=== PATIENT | male | born 1960 | race Caucasian/White ===

== ENCOUNTER 2019-05-25 05:07 | Day surgery (SDC) | payer BC ==
[~2019-05-25 05:07] MED LIST: METOCLOPRAMIDE 10 MG TABLET PO ONE
[2019-05-25] MEDS ORDERED: LIDOCAINE 2% MDV (20MG/ML) 20ML VIAL IV ONE (05:08)
[2019-05-25] MEDS ORDERED: PROPOFOL 10 MG/ML VIAL IV ONE (05:08)
[2019-05-25] MEDS ORDERED: ROPIVACAINE HCL (NAROPIN) /PF 5MG/ML 20ML VIAL IV ONE (05:08)
[2019-05-25] MEDS ORDERED: MIDAZOLAM HCL 2MG/2ML VIAL IV ONE (05:08)
[2019-05-25] MEDS ORDERED: DEXAMETHASONE 4 MG/ML 1ML VIAL IVP ONE (05:08)
[2019-05-25] MEDS ORDERED: EPHEDRINE SULFATE 50 MG/ML ML IV ONE (05:08)
[2019-05-25] MEDS ORDERED: GLYCOPYRROLATE 0.2 MG/ML ML IV ONE (05:08)
[2019-05-25] MEDS ORDERED: RINGERS SOLUTION,LACTATED 1,000 ML IV ONE (05:40)
[2019-05-25] MEDS ORDERED: METOCLOPRAMIDE 10 MG TABLET PO ONE (06:00)
[2019-05-25] MEDS ORDERED: MECLIZINE 25 MG TABLET PO ONE (06:00)
[2019-05-25] MEDS ORDERED: FAMOTIDINE 20MG TABLET PO ONE (06:00)
[2019-05-25] MEDS ORDERED: CEFAZOLIN 2 Gram 2 GM/50 ML BAG IVPB ONE (06:00)
[2019-05-25] MEDS: RINGERS SOLUTION,LACTATED 1,000 ML IV SCH (09:10)
[2019-05-25] MEDS ORDERED: ONDANSETRON HCL IV 4 MG/2 ML VIAL IVP PRN (09:30)
[2019-05-25] MEDS ORDERED: DIPHENHYDRAMINE HCL 25 MG CAPSULE PO PRN (09:30)
[2019-05-25] MEDS ORDERED: AL HYDROX/MAG HYDROX 30ML UD PO PRN (09:30)
[2019-05-25] MEDS ORDERED: HYDROCODONE/APAP 5/325MG TABLET PO PRN (09:30)
[2019-05-25] MEDS ORDERED: MAGNESIUM HYDROXIDE 30 ML UDC PO PRN (09:30)
[2019-05-25] MEDS ORDERED: ZOLPIDEM TARTRATE 5 MG TABLET PO PRN (09:30)
[2019-05-25] MEDS ORDERED: TRAMADOL HCL 50 MG TABLET PO PRN ×2 (09:30)
[2019-05-25] MEDS ORDERED: ACETAMINOPHEN 325 MG TAB PO PRN (09:30)
[2019-05-25] MEDS ORDERED: OXYCODONE HCL/APAP 5MG/325MG TABLET PO PRN ×2 (09:30)
[2019-05-25] MEDS ORDERED: NALOXONE 0.4 MG/1 ML VIAL IVP PRN (09:30)
[2019-05-25] MEDS ORDERED: METOCLOPRAMIDE HCL 10 MG/2 ML VIAL IVP PRN (09:30)
[2019-05-25] MEDS ORDERED: RINGERS SOLUTION,LACTATED 1,000 ML IV PRN (10:13)
[2019-05-25] MEDS ORDERED: TRANEXAMIC ACID 1,000 MG in 0.9 % SODIUM CHLORIDE 100ML 100 ML IVPB ONE (11:00)
[2019-05-25] MEDS: HYDROCODONE/APAP 5/325MG TABLET PO PRN ×2 (11:26→18:38)
[2019-05-25] MEDS: HYDROMORPHONE HCL 2 MG/ML VIAL IV PRN ×3 (13:18→19:57)
--- NOTE | 2019-05-25 14:19 | Rehab Evaluation ---
Patient Information - Patient Information Diagnosis: L knee OA Ordered Treatment: PT Evaluate and Treat Status: Initial Evaluation Surgery: Yes (L knee TKA) Date of Surgery: 05/25/19 Past Medical/Surgical Hx: PAST MEDICAL/SURGICAL HISTORY Surgery to Affected Area? No Recent Surgery? Past Surgical History C-Scope Hernia Sperm Surgery-35 years ago PMH - Respiratory Hx Respiratory Disorders Yes Hx Sleep Apnea Yes Hx of CPAP No Comment: ALLERGIES PMH - Cardiovascular Hx Cardiovascular Disorders Yes Hx Hypertension Yes Exercise Tolerance Good PMH - Neuro Hx Neurological Disorders No PMH - GI Hx Gastrointestinal Disorders Yes Comment: Colon Polyp PMH - Hx Genitourinary Disorders No PMH - Endocrine Hx Endocrine Disorders No PMH - Musculoskeletal Hx Musculoskeletal Disorders Yes Hx Arthritis Yes Hx Back Injury Yes PMH - Psych Hx Psychiatric Problems No PMH - Hematology/Oncology Hx Hematology/Oncology Yes Disorders Hx Blood Disorders Yes Hx Unexplained Bleeding Yes Premorbid Status: Detail (Prior to surgery the patient was independent with all mobility.) Social History: Detail (The patient lives spouse in a 2 story house with 3 steps at the enterance with no handrails. The bathroom is equipped with: a tub/shower combination , hand held shower, standard toilet. No grab bars are present in the bathroom. The patient has a walker with wheels and a quad cane.) Precautions: [place], Fall, Other (WBAT on the L LE.) - Time With Patient Total Time Spent With Patient (Min): 25 Treatment Procedures: Detail (Initial Evaluation, gait training) Subjective Information - Subjective Information Per Patient (The patient had complaints of level 5 pain using 0-10 pain scale.) Objective Data - Mental Status Patient Orientation: Oriented x3 - Visual Perception Appears within normal limits for therapeutic activities - ROM Not within normal limits (The patient's L knee AROM was limited s/p surgery. All other LE AROM was WNL.) - Strength/Tone Not within normal limits (The patient's L LE strength was not tested s/p however was functional ie: patient was able to lift L LE into bed. The patient's R LE strength was WFL.) - Bed Mobility Independent (The patient was independent with supine to sit with use of R LE to lift L LE. The patient was independent with sit to supine and scooting up in bed .) - Transfers Independent (The patient was independent/supervision with sit to and from stand transfer, the patient required verbal cues to push up from the surface.) - Balance Balance Sitting: Good Balance Standing: Good - Sensation Intact - Gait Detail (The patient ambulated with front wheeled walker a distance of 26 feet x1 WBAT on the L LE with CG/supervision for safety. The patient declined to ambulate further.) Therapy Assessment - Therapy Assessment Detail (The patient was independent with bed mobility and required verbal cueing only for transfers and CG/supervision for safety with ambulation. Feel the patient will progress well with mobility.) Problem List - Problem List Physical Therapy Problem List: Detail (1) Decreased L knee AROM and decreased L LE strength 2) Impaired ambulation) Goals - Goals Physical Therapy Goals: 1) The patient will ambulate independently with front wheeled walker household distances. 2) The patient will ambulate on stairs with supervision for safety using proper technique. 3) The patient will be indepen dent with TKA HEP. Prognosis - Prognosis Good Plan - Plan Physical Therapy Plan: PT 1-2 sessions for gait training on levels and stairs and instruction in HEP.
[2019-05-25] MEDS: CEFAZOLIN 1G VIAL IVP SCH ×2 (17:04→22:51)
[2019-05-25] MEDS: CLONIDINE HCL 0.1 MG TABLET PO SCH (21:45)
[2019-05-25] MEDS: ASPIRIN 325 MG TAB ENTERIC-COATED PO SCH (21:46)
[2019-05-25] MEDS: SENNOSIDES/DOCUSATE SODIUM UD CAPSULE PO PRN (21:49)
[2019-05-26] MEDS: RINGERS SOLUTION,LACTATED 1,000 ML IV SCH (05:28)
[2019-05-26] MEDS: CEFAZOLIN 1G VIAL IVP SCH (07:54)
[2019-05-26] MEDS: ASPIRIN 325 MG TAB ENTERIC-COATED PO SCH (09:13)
[2019-05-26] MEDS: CLONIDINE HCL 0.1 MG TABLET PO SCH (09:15)
[2019-05-26] MEDS: SENNOSIDES/DOCUSATE SODIUM UD CAPSULE PO PRN (09:17)
[2019-05-26] MEDS ORDERED: METOPROLOL TART 50 MG TABLET PO SCH (10:00)
[2019-05-26] MEDS ORDERED: SIMVASTATIN 10MG TABLET PO SCH (10:00)
[2019-05-26] MEDS ORDERED: HYDROCHLOROTHIAZIDE 25 MG TABLET PO SCH (10:00)
[2019-05-26] MEDS ORDERED: LISINOPRIL 20 MG TABLET PO SCH (10:00)
--- NOTE | 2019-05-26 10:10 | Rehab Evaluation ---
Patient Information - Patient Information Diagnosis: L knee OA Ordered Treatment: OT Evaluate and Treat Status: Initial Evaluation Surgery: Yes (L knee TKA) Date of Surgery: 05/25/19 Past Medical/Surgical Hx: PAST MEDICAL/SURGICAL HISTORY Surgery to Affected Area? No Recent Surgery? Past Surgical History C-Scope Hernia Sperm Surgery-35 years ago PMH - Respiratory Hx Respiratory Disorders Yes Hx Sleep Apnea Yes Hx of CPAP No Comment: ALLERGIES PMH - Cardiovascular Hx Cardiovascular Disorders Yes Hx Hypertension Yes Exercise Tolerance Good PMH - Neuro Hx Neurological Disorders No PMH - GI Hx Gastrointestinal Disorders Yes Comment: Colon Polyp PMH - Hx Genitourinary Disorders No PMH - Endocrine Hx Endocrine Disorders No PMH - Musculoskeletal Hx Musculoskeletal Disorders Yes Hx Arthritis Yes Hx Back Injury Yes PMH - Psych Hx Psychiatric Problems No PMH - Hematology/Oncology Hx Hematology/Oncology Yes Disorders Hx Blood Disorders Yes Hx Unexplained Bleeding Yes Premorbid Status: Detail (Prior to surgery the patient was independent with all mobility. He and spouse share all IADLs and farm chores.) Social History: Detail (The patient lives spouse in a 2 story house with 3 steps at the entrance with no handrails. He reports the steps are deep enough for a walker to fit on each step. The bathroom is equipped with: a tub/shower combination with an extended shower seat and hand held shower as well as a standard toilet. No grab bars are present in the bathroom. The patient has a walker with wheels, a quad cane and a long shoe horn.) Precautions: [place], Fall, Other (WBAT on the L LE.) - Time With Patient Total Time Spent With Patient (Min): 40 Treatment Procedures: Detail (OT eval low complexity) Subjective Information - Subjective Information Per Patient Objective Data - Pain Pain Present: Yes (3-03/10) - Mental Status Patient Orientation: Oriented x3 - Visual Perception Appears within normal limits for therapeutic activities - ROM Within normal limits ([place]iz[place] UE AROM WNL) - Strength/Tone Within normal limits ([place] UE strength WNL) - Coordination Appears within normal limits for therapeutic activities - Bed Mobility Independent (Ind with supine to sit) - Transfers Independent (Ind with sit to stand from EOB) - Balance Balance Sitting: Good Balance Standing: Good - Sensation Intact - Gait Detail (Pt ambulating in room with 2 wheeled walker.) - ADL's/IADL's Detail (Pt educated and able to demonstrate learning of modified LE dressing techniques including doffing slipper socks and donning shorts and slip on shoes. Pt was educated on kitchen and shower safety and modifications and he verbalized understanding. Pt concerned about long walk into his house, recommended having a chair to rest in available along the walk. Pt was Ind with toileting in standing.) Therapy Assessment - Therapy Assessment Detail (Pt is Ind with modified LE dressing techniques.) Problem List - Problem List Physical Therapy Problem List: Detail (1) Decreased L knee AROM and decreased L LE strength 2) Impaired ambulation) Occupational Therapy Problem List: Detail (No current IP OT problems dahlia ntified.) Goals - Goals Physical Therapy Goals: 1) The patient will ambulate independently with front wheeled walker household distances. 2) The patient will ambulate on stairs with supervision for safety using proper technique. 3) The patient will be independent with TKA HEP. Occupational Therapy Goals: No current IP OT goals identified. Prognosis - Prognosis Good Plan - Plan Physical Therapy Plan: PT 1-2 sessions for gait training on levels and stairs and instruction in HEP. Occupational Therapy Plan: No further IP OT recommended. Thank you for this referral.
--- NOTE | 2019-05-26 10:27 | Physical Therapy Tx Note ---
Physical Therapy Tx Note - Treatment Note Tolerated: Fair Total Time Spent With Patient: 25 Physical Therapy Tx Note: Detail (The patient was up in chair when PT arrived and complained of level 5 pain in L knee using 0-10 pain scale. The patient was concerned he would not be able to ambulate the 100 [address] from his driveway to his house. The patient was independent with sit to and from stand transfer. The patient ambulated with front wheeled walker WBAT on the L LE a distance of 110 feet x 1 independently with 3 to 4 standing rest breaks. The patient was independent with effort with sit to supine. The patient was instructed in use of strap with sit to supine. The patient then completed the following TKA HEP: supine heel slides, quad sets, hamstring sets, gluteal sets, SLR with use of strap and ankle pumps. The patient had difficulty isolating the quad. The patient declined ambulating on steps/curb step until this pm. Patient was left in bed with call light within reach and ice pack placed on L knee.) Physical Therapy Problem List: Detail (1) Decreased L knee AROM and decreased L LE strength 2) Impaired ambulation) Physical Therapy Goals: 1) The patient will ambulate independently with front wh eeled walker household distances. 2) The patient will ambulate on curb step(similar to what he has in home environment) with supervision for safety using proper technique. 3) The patient will be independent with TKA HEP. Physical Therapy Plan: PT 1-2 sessions for gait training on levels and stairs and instruction in HEP.
[2019-05-26] MEDS: HYDROCODONE/APAP 5/325MG TABLET PO PRN (11:31)
--- NOTE | 2019-05-26 12:31 | Operative Note ---
DATE OF SURGERY: 05/25/2019 SURGEON: Babar Hernandez DO PREOPERATIVE DIAGNOSIS: Osteoarthritis of the left knee. POSTOPERATIVE DIAGNOSIS: Osteoarthritis of the left knee. OPERATION: Left total knee arthroplasty. DESCRIPTION OF PROCEDURE: This 59-year-old male was taken to the operating room and placed in the supine position on the operating room table after spinal anesthesia had been induced by the department of anesthesia. The left lower extremity was elevated. It was prepped with Hibiclens and draped in the usual sterile fashion. It was exsanguinated and the tourniquet inflated to 300 mmHg. After prepping and draping in the usual sterile fashion, an anterior longitudinal midline incision was made followed by a medial parapatellar arthrotomy incision. An intracondylar drill hole was made for the intramedullary alignment aly. The distal femoral cutting block was affixed, and a 10 mm cut was made on the distal femur because of slight flexion contracture. It was made at 6-degree valgus. The sizing jig was subsequently affixed, and size 72.5 was seen to be the appropriate size. The 4-in-1 cutting block was then pinned in 3 degrees of external rotation. The appropriate cuts were made. Wafer of bone was removed. We then directed our attention to the proximal tibia, and an extramedullary alignment guide was used to cut the proximal tibia referencing a 10 mm cut off the lateral tibial plateau. However, because of severe bone loss medially, it was necessary for us to take an additional 2 mm and to get below the subchondral bone. After the appropriate alignment of the block had been set, a 3-degree posterior slope cut was made and the wafer of bone was removed. Remnants of the menisci and osteophytes were removed from the posterior aspect of the joint. The tibial baseplate was placed and the stem punch was used. The trial components were inserted. Once the appropriate thickness of the trial bearing was seem to be appropriate to give us anabaptism to full extension of his knee and full flexion, the patella was then cut and restored to anatomic height with the trial component. A 37 x 8.6 mm trial bearing was used. After the knee had been trialed with the patella button in place and felt to be satisfactory, all trial components were removed and the wound copiously irrigated with pulse lavage lactated Ringer's solution removing all debris from the joint. All bony surfaces were then dried and all components were cemented into place. Excess cement removed after the insertion of each component. Initially, the tibial baseplate was placed followed by the insertion of the tibial bearing, the femoral component, and finally the patella. Once the cement had hardened, the knee was again taken through range of motion and again found to be stable. A drain was placed through a separate stab incision. The arthrotomy incision was then closed with a #2 Vicryl. The subcutaneous tissue was closed with 0 Vicryl and the skin was stapled. Polar pack applied after sterile dressings had been applied. The patient was taken to the recovery room in satisfactory condition. GROSS PATHOLOGY: This patient demonstrated severe osteoarthritis with full- thickness articular cartilage loss noted in the medial compartment and bone loss on the medial tibial plateau. The components inserted were a [employer]. BLASD
--- NOTE | 2019-05-26 12:31 | Discharge Summary ---
DATE OF ADMISSION: 05/25/2019 DATE OF DISCHARGE: 05/26/2019 ADMITTING DIAGNOSIS: Osteoarthritis of left knee. DISCHARGE DIAGNOSIS: Osteoarthritis of left knee. OPERATIVE PROCEDURE: Elective left total knee arthroplasty. HOSPITAL COURSE: This 59-year-old male was admitted to the hospital for elective total knee arthroplasty and tolerated the operative procedure well. He progressed satisfactorily with physical therapy and was cleared for discharge. The drain was removed. The patient showed no sign of complication, no evidence of DVT. He did clear PT. His discharge instructions were to follow up in my office on 06/08/2019 for staple removal. He will wear his TESHA hose during the day and remove them at night. He will have outpatient physical therapy. He was given a prescription for Wallace 5/325, #40, 1 every 6 hours as necessary for pain. Routine wound care instructions were given. He will follow up in my office in 2 weeks. Should he have any problems prior to being seen, he was instructed to call my office. MARISSA
--- NOTE | 2019-05-26 16:19 | Physical Therapy Tx Note ---
Physical Therapy Tx Note - Treatment Note Tolerated: Good Total Time Spent With Patient: 20 Physical Therapy Tx Note: Detail (The patient was in bed with present when PT arrived. The paient was independent with bed mobility and sit to and from stand transfer. The patient ambulated 15 feet to wheelchair and was transported to curb step. With present the patient went up and down curb step with walker using correct technique with CG for safety. The patient's Rfoot stuck when descending curb step the first practice trial, however the patient was able to safely move foot in time. The second trial the patient was able to move R foot with less difficulty. The patient was hesistant in putting weight on L LE throughout curb step climbing but became more comfortable with the second trial. Both patient's and patient stated they felt safe with curb step climbing and stated the curb steps at home were only 4 inches and not as high the practice curb. The patient returned to room and ambulated to bed where Ice was placed on L knee and call light was within reach. The patient has met all inpatient goals and is discharged from inpatient PT. Patient is to receive outpatient PT.) Physical Therapy Problem List: Detail (1) Decreased L knee AROM and decreased L LE strength 2) Impaired ambulation) Physical Therapy Goals: 1) The patient will ambulate independently with front wheeled walker household distances. (Goal Met). 2) The patient will ambulate on curb step(similar to what he has in home environment) with supervision for safety using proper technique. (Goal Met). 3) The patient will be independent with TKA HEP. (Goal Met) Physical Therapy Plan: The patient is discharged from inpt PT and to receive outpatient PT.
--- NOTE | 2019-05-28 12:31 | Operative Note ---
DATE OF SURGERY: 05/25/2019 SURGEON: Babar Hernandez DO PREOPERATIVE DIAGNOSIS: Osteoarthritis of the left knee. POSTOPERATIVE DIAGNOSIS: Osteoarthritis of the left knee. OPERATION: Left total knee arthroplasty. DESCRIPTION OF PROCEDURE: This 59-year-old male was taken to the operating room and placed in the supine position on the operating room table after spinal anesthesia had been induced by the department of anesthesia. The left lower extremity was elevated. It was prepped with Hibiclens and draped in the usual sterile fashion. It was exsanguinated and the tourniquet inflated to 300 mmHg after prepping and draping in the usual sterile fashion. All scrub personnel wore personal isolation suits. An anterior longitudinal midline incision was made followed by a medial parapatellar arthrotomy incision. An intracondylar drill hole was made for the intramedullary alignment aly, and a DICTATION ENDS HERE CC: Jazmyn Perez DO [facility] CENTERBernardo
== END 2019-05-26 15:35 | disposition home or self-care (01) ==
LOC: SUR 05:07 → MEDSURG 09:09 → SUR 05-26 15:35
PROVIDERS: ATTEND Orthopaedic Surgery
DX: M17.12 Unilateral primary osteoarthritis, left knee (principal); I10 Essential (primary) hypertension; E78.00 Pure hypercholesterolemia, unspecified; G47.33 Obstructive sleep apnea (adult) (pediatric)
CPT/HCPCS: 27447; 01402; 64447; J3490 ×2; J1170; J0690; J2795; 76942; 97110; J7120